=== PATIENT | female | born 1990 | race Caucasian/White ===

== ENCOUNTER 2021-10-09 00:26 | Emergency (ER) | payer SELFPAY ==
[~2021-10-09] VITALS: Ht 167.6 cm; Wt 73.0 kg
[2021-10-09 00:33] VITALS: BP 137/82
== END 2021-10-09 01:30 | disposition home or self-care (01) ==
LOC: ER 00:39
DX: F22 Delusional disorders (principal)
CPT/HCPCS: 99283